=== PATIENT | female | born 1990 | race African-American/Black ===

== ENCOUNTER 2022-02-06 15:20 | Emergency (ER) | payer OTHER, SELFPAY ==
--- NOTE | ~2022-02-06 | XR_ITS ---
EXAMINATION: XR THORACIC SPINE CLINICAL INFORMATION: Injury at work COMPARISON: None TECHNIQUE: 3 views of the thoracic spine were obtained. FINDINGS: There is no fracture or bone destruction seen and the vertebral alignment is normal. There is no disc space narrowing. There is no abnormality of the paraspinal soft tissues. XR/XR thoracic spine 3V IMPRESSION: No thoracic spine abnormality appreciated.
[2022-02-06 15:35] VITALS: BP 129/78; PULSE 87; RESP 18; TEMP 36.7; O2SAT 100; BMI 26.8
--- NOTE | 2022-02-06 16:57 | ED.BACK ---
HPI - Back Pain/Injury General Chief Complaint: Back Pain/Injury Stated Complaint: Back inj at work Time Seen by Provider: 02/06/22 16:28 Source: patient Mode of arrival: ambulatory Limitations: no limitations History of Present Illness HPI Narrative: Patient presents emergency department for evaluation of midthoracic pain. She states while at work this morning she was attempting to prevent patient from falling when she fell backwards into the wall striking her mid back onto the wall. Pain is made worse with movement, forward stretching of the arms. Denies any numbness or tingling. Denies pain to the lower back or perineum. No bladder or bowel incontinence. No prior injury to back. MD elicited complaint: back pain Related Data Allergies Allergy/AdvReac Type Severity Reaction Status Date / Time No Known Allergies Allergy Unverified 02/27/20 19:00 [No Known Allergies*] Review of Systems Review of Systems: Constitutional: No fever, chills, weakness or fatigue. Cardiovascular: No chest pain, chest pressure or chest discomfort. No palpitations Respiratory: No shortness of breath, cough or sputum production. Genitourinary: No burning micturition. No urinary frequency or incontinence. Neurologic: No headache, dizziness, syncope, unilateral weakness, ataxia, numbness or tingling in the extremities. No change in bowel or bladder control. Musculoskeletal: + Back pain as noted in HPI. No joint pain or stiffness. Yes all other systems are reviewed and are negative PMFSH Past Medical History Attestation statement: The following information was validated with the patient. Source: old records reviewed Social History Social History Advance Directives: No Advance Directives Information Provided: No Physical Exam Vital Signs: Vital Signs: Last Vital Signs Temp 98.0 F 02/06/22 15:35 Pulse 87 02/06/22 15:35 Resp 18 02/06/22 15:35 BP 129/78 02/06/22 15:35 Pulse Ox 100 02/06/22 15:35 O2 Del Method 02/06/22 15:35 BMI result Body Mass Index 26.8 Vital signs have been reviewed as normal and appeared to be correct. Blood pressure normal.? Heart rate normal.? Respiration rate normal. Temperature normal.? Oxygen saturation normal. Appearance: Alert.?Oriented to person, place and time. No acute distress.?Normal affect. Eyes: Pupils equal, round and reactive to light.? ENT: Pharynx normal.?? Neck: Normal inspection.? Neck supple. No midline cervical spine tenderness, step-offs, deformities?? CVS: Heart sounds normal. Normal heart rate and rhythm.? Pulses normal; bilateral radial pulses 2+, bilateral posterior tibial/dorsalis pedis pulses 2+.? Respiratory: No respiratory distress.? Lung sounds clear to auscultation bilaterally??palpable chest wall tenderness. No crepitus. Abdomen: Soft and non-tender.? Skin: Skin warm and dry.? Normal skin color.? Normal skin turgor.?? Extremities: No lower extremity edema.? Back: + mild paraspinal muscular tenderness at thoracic region. No CVA tenderness. No midline spinal tenderness, step-off's, or deformity. Full ROM intact in bilateral lower extremities. No abrasions noted. Neuro: Moves all extremities spontaneously. Sensation to light touch intact bilaterally. No ataxia, gait normal and steady.. No focal neuro deficits. Course Course Course Narrative: Patient is a 31-year-old female with no significant past medical history who presents emergency department for evaluation of traumatic back pain after falling into a wall at work today. XR the thoracic spine reveals no acute fracture or osseous abnormalities. Pain is exacerbated with movement, seeming most consistent with muscular pain, although cannot completely exclude herniated disc. On neurological exam there are no deficits. Not consistent with spinal fracture, spinal infection.. No high risk past medical history including incontinence, fever, immunosuppression, recent surgery or lumbar puncture, coagulopathy, significant trauma, recent unintentional weight loss, pulsatile mass, history of cancer, history of TB, history of IV drug use that would warrant MRI or CT. Reviewed plan of care for discharge home, Tylenol/ibuprofen as needed for pain, ice/heat applied as tolerated throughout the day. Reviewed worsening signs and symptoms return back to the emergency department for. Outpatient follow-up with primary care provider as needed. Patient verbalized understanding, was discharged home in stable condition, ambulatory out of the emergency department with steady gait. All questions were answered. MDM - Back Pain/Injury Medical Records Attestation: I reviewed the patient's medical records. Imaging Data thoracic XR: Radiologist's impression: XR/XR thoracic spine 3V IMPRESSION: No thoracic spine abnormality appreciated. Discharge Plan Discharge Clinical Impression: Thoracic back pain Patient Disposition: Home, Self-Care Instructions: Thoracic Pain (ED) Additional Instructions: As we discussed the x-ray of your back was normal. You can take ibuprofen 200 mg, 3 tablets (600mg) every 6-8 hours as needed for pain, in addition to Tylenol 500 mg, 2 tablets (1,000mg) every 4-6 hours as needed for pain, but not to exceed 3 doses daily (3,000mg).? You may apply ice/heat a few times over the next few days to aid in pain relief. Engage in gentle stretching and exercise. Please contact your primary care provider to arrange for a follow-up as needed Return to emergency department with any new or worsening symptoms or concerns. Stand Alone Forms: Work/School Release
== END 2022-02-06 18:06 | disposition home or self-care (01) ==
PROVIDERS: Emergency Provider Internal Medicine
DX: M54.6 Pain in thoracic spine (principal); M54.50 Low back pain, unspecified
CPT/HCPCS: 72072; 99282

== ENCOUNTER 2022-12-02 07:51 | Emergency (ER) | payer MEDICAID, SELFPAY ==
[2022-12-02 07:59] VITALS: BP 116/68; BP 120/79; PULSE 72; PULSE 77; RESP 13; TEMP 37.1; O2SAT 100; BMI 25.5
--- NOTE | 2022-12-02 08:19 | ED.GENADULT ---
HPI - General Adult General Chief complaint: Headache Stated complaint: Allergic reaction, dizziness, nausea Time Seen by Provider: 12/02/22 07:54 Source: patient Mode of arrival: ambulatory Limitations: no limitations History of Present Illness HPI narrative: 32-year-old female with history of migraines recently starting sumatriptan. Patient was having severe headache earlier today and she took her 2nd dose of sumatriptan. Since then she developed some heaviness behind her neck, nausea, lightheadedness. She describes her symptoms as severe. Her symptoms are worsened by sumatriptan. There is no clear relieving symptoms. They are steadily getting better on their own. She does have a headache at this time does moderate nature. Bitemporal. Does not radiate. It is not worse by light or sound. There is associated nausea but no vomiting. She denies any fevers but she is having intermittent chills. The pain that she does have is aching and pressure in nature. Does not radiate. Related Data Previous Rx's Medication Instructions Recorded [id number]-[id number] 1 cap PO Q8H PRN pain #10 caps 12/02/22 50 mg-300 mg-40 mg capsule (Fioricet) metoclopramide HCl 10 mg tablet 10 mg PO Q6H PRN nausea and 12/02/22 (Reglan) vomiting #10 tabs Allergies Allergy/AdvReac Type Severity Reaction Status Date / Time No Known Allergies Allergy Verified 12/02/22 08:10 [No Known Allergies*] Review of Systems Review of Systems: CONSTITUTIONAL: Denies weight loss, fever + chills. HEENT: Denies changes in vision and hearing. RESPIRATORY: Denies SOB and cough. CV: Denies palpitations no CP. GI: Denies abdominal pain,+ nausea, - vomiting and diarrhea. : Denies dysuria and urinary frequency. MSK: Denies myalgia and joint pain. SKIN: Denies rash and pruritus. NEUROLOGICAL: + headache - syncope. PSYCHIATRIC: Denies recent changes in mood. Denies anxiety and depression. All other ROS are negative unless in HPI [facility] Social History Social History Advance Directives: No Advance Directives Information Provided: Yes Physical Exam ED Vital Signs: Vital Signs - 24 hr 12/02/22 07:59 Temperature 98.8 F Pulse Rate 77 Respiratory Rate 13 Blood Pressure 120/79 Pulse Oximetry 100 Oxygen Delivery Method Room Air BMI result Body Mass Index 25.5 GEN: Well developed, no acute distress, alert, oriented HEENT: Normocephalic, atraumatic, normal external ears, nose appears normal, no oropharyngeal edema or exudates Eyes: Normal to appearance Neck: Supple, no lymphadenopathy Respiratory: Talks in complete sentences, no respiratory distress, clear to auscultation bilaterally Cardiovascular: Regular rate and rhythm, no murmurs rubs or gallops Abdomen: Soft, nontender, nondistended, no guarding, no rebound Back: No CVA tenderness Extremities: No clubbing cyanosis or edema Neurologic: No focal neurologic deficits, cranial nerves 2-12 intact, strength is 5/5 bilaterally Skin: No rash Course Course Course Narrative: Patient presents with migraine headache and probably adverse effects from Triptan therapy. Patient is feeling much better at this time. Will discharge. She will stop Triptan medications. Will recommend Fioricet and Reglan as needed for pain and discomfort. Medications Administered Discontinued Medications Generic Name Dose Route Start Last Admin Trade Name Freq PRN Reason Stop Dose Admin Sodium Chloride 1,000 mls @ 999 mls/hr 12/02/22 08:15 12/02/22 09:08 Ns IV 12/02/22 09:15 999 mls/hr .Q1H1M ELYSSA Administration Ketorolac Tromethamine 15 mg 12/02/22 08:08 12/02/22 09:14 Ketorolac Tromethamine 15 Mg/Ml Vial IVPUSH 12/02/22 08:09 15 mg ONCE ONE Administration Metoclopramide HCl 10 mg 12/02/22 08:08 12/02/22 09:14 Metoclopramide Hcl 10 Mg/2 Ml Vial IVPUSH 12/02/22 08:09 10 mg ONCE ONE Administration Medical Decision Making Medical Decision Making MDM Narrative: 32-year-old female presents with side effects from sumatriptan which she recently started. Patient was having a bitemporal headache that was moderate to severe in nature. She took sumatriptan. She then developed some heaviness behind her neck, nausea, lightheadedness and intermittent chills. Her symptoms are starting to rosario. Her examination is unremarkable. Differential diagnosis includes viral syndrome, side effect from medication, migraine headache, other headache syndrome, electrolyte abnormality, hypoglycemia. Plan will be to check routine laboratory analysis, provide patient with analgesia through the IV including IV fluids, Toradol, Reglan. Will re-evaluate the patient. There is no indication for emergent imaging for headache as I doubt subdural hematoma, epidural hematoma, subarachnoid hemorrhage. Her neck was supple. She has no meningitis symptoms. Should her symptoms worsen or not progress to improvement, would consider hospitalization. Differential Diagnosis Differential Diagnoses: The differential diagnosis associated with the presentation includes Admission/Observation Consideration of admission/observation: Escalation of care including admission/observation considered Lab Data MDM Lab Attestation statement: I reviewed the patient's lab results. 12/02/22 08:18 12/02/22 08:17 Labs: Lab Results 12/02/22 12/02/22 12/02/22 Range/Units 08:17 08:18 08:33 WBC 4.0 L (4.8-10.8) X10*3/uL RBC 4.43 (4.20-5.50) X10*6/uL Hgb 11.5 L (12.0-16.0) g/dl Hct 35.4 L (37.0-47.0) % MCV 79.9 L (80.0-98.0) fL MCH 26.0 L (27.0-33.0) pg MCHC 32.5 (31.0-35.0) g/dl RDW 14.0 (11.0-16.0) % Plt Count 231 (160-400) X10*3/uL MPV 10.6 (9.4-12.3) fL Immature Gran % (Auto) 0.3 (0.0-0.4) % Neut % (Auto) 50.3 (45-73) % Lymph % (Auto) 35.3 (20-40) % [place] % (Auto) 11.0 (2-11) % Eos % (Auto) 2.8 (0-4) % Baso % (Auto) 0.3 (0-2) % Lymph # (Auto) 1.4 (1.2-4.9) X10*3/uL [place] # (Auto) 0.4 (0.1-1.2) X10*3/uL Eos # (Auto) 0.1 (0.0-0.4) X10*3/uL Baso # (Auto) 0.0 (0.0-0.2) X10*3/uL Abs Immat Gran (auto) 0.01 (0.00-0.03) X10*3/uL Absolute Neuts (auto) 2.0 (2.0-8.3) x10*3/uL Absolute Nucleated RBC 0.000 (0.0-0.012) X10*3/uL Nucleated RBC % (auto) 0.0 (0.0-0.2) /100WBC Sodium 138 (135-145) mmol/L Potassium 4.1 (3.3-5.1) mmol/L Chloride 104 (96-108) mmol/L Carbon Dioxide 27 (22-29) mmol/L Anion Gap 11 L (12-20) BUN 12 (9-16) mg/dL Creatinine 0.88 (0.5-1.4) mg/dL Estim Creat Clear Calc 87.4 Estimated GFR > 60 Random Glucose 85 (60-115) mg/dL Calcium 10.0 (8.4-10.2) mg/dL Urine Color Yellow Urine Appearance Clear Urine pH 6.5 (5.0-9.0) Ur Specific [place] 1.010 (1.005-1.025) Urine Protein Negative (Neg-Trace) mg/dL Urine Glucose (UA) Negative (Negative) mg/dL Urine Ketones Negative (Negative) mg/dL Urine Blood Negative (Negative) Urine Nitrite Negative (Negative) Ur Leukocyte Esterase Negative (Negative) Urine Test (NEGATIVE) 12/02/22 Range/Units 08:33 WBC (4.8-10.8) X10*3/uL RBC (4.20-5.50) X10*6/uL Hgb (12.0-16.0) g/dl Hct (37.0-47.0) % MCV (80.0-98.0) fL MCH (27.0-33.0) pg MCHC (31.0-35.0) g/dl RDW (11.0-16.0) % Plt Count (160-400) X10*3/uL MPV (9.4-12.3) fL Immature Gran % (Auto) (0.0-0.4) % Neut % (Auto) (45-73) % Lymph % (Auto) (20-40) % [place] % (Auto) (2-11) % Eos % (Auto) (0-4) % Baso % (Auto) (0-2) % Lymph # (Auto) (1.2-4.9) X10*3/uL [place] # (Auto) (0.1-1.2) X10*3/uL Eos # (Auto) (0.0-0.4) X10*3/uL Baso # (Auto) (0.0-0.2) X10*3/uL Abs Immat Gran (auto) (0.00-0.03) X10*3/uL Absolute Neuts (auto) (2.0-8.3) x10*3/uL Absolute Nucleated RBC (0.0-0.012) X10*3/uL Nucleated RBC % (auto) (0.0-0.2) /100WBC Sodium (135-145) mmol/L Potassium (3.3-5.1) mmol/L Chloride (96-108) mmol/L Carbon Dioxide (22-29) mmol/L Anion Gap (12-20) BUN (9-16) mg/dL Creatinine (0.5-1.4) mg/dL Estim Creat Clear Calc Estimated GFR Random Glucose (60-115) mg/dL Calcium (8.4-10.2) mg/dL Urine Color Urine Appearance Urine pH (5.0-9.0) Ur Specific [place] (1.005-1.025) Urine Protein (Neg-Trace) mg/dL Urine Glucose (UA) (Negative) mg/dL Urine Ketones (Negative) mg/dL Urine Blood (Negative) Urine Nitrite (Negative) Ur Leukocyte Esterase (Negative) Urine Test NEGATIVE (NEGATIVE) Tests considered The following testing was considered but not selected: CT scan head Prescription Management I considered prescription management with: Pain Medication Discharge Plan Discharge Clinical Impression: Headache, Drug side effects Patient Disposition: Home, Self-Care Instructions: Acute Headache (ED) Prescriptions: New metoclopramide HCl [Reglan] 10 mg tablet 10 mg PO Q6H PRN (Reason: nausea and vomiting) Qty: 10 0RF [id number]-[id number] [Fioricet] 50-300-40 mg capsule 1 cap PO Q8H PRN (Reason: pain) Qty: 10 0RF Referrals: Physician,Unknown J [Primary Care Provider] - (PMD as needed)
[2022-12-02 08:22] LABS: MANUAL DIFF FLAG NO
[2022-12-02 08:36] LABS: Basophils Percent Auto 0.3 % (0-2); Eosinophils Absolute Auto 0.1 X10*3/uL (0.0-0.4); Eosinophils Percent Auto 2.8 % (0-4); Hematocrit 35.4 % (37.0-47.0); Hemoglobin 11.5 g/dl (12.0-16.0); Imm Gran Abs Auto 0.01 X10*3/uL (0.00-0.03); Imm Gran Pct Auto 0.3 % (0.0-0.4); Lymphocytes Absolute Auto 1.4 X10*3/uL (1.2-4.9); Lymphocytes Percent Auto 35.3 % (20-40); Mean Corpuscular HGB Conc 32.5 g/dl (31.0-35.0); Mean Corpuscular Volume 79.9 fL (80.0-98.0); Mean Platelet Volume 10.6 fL (9.4-12.3); Monocytes Absolute Auto 0.4 X10*3/uL (0.1-1.2); Neutrophils Percent Auto 50.3 % (45-73); Platelet Count 231 X10*3/uL (160-400); Red Blood Count 4.43 X10*6/uL (4.20-5.50)
[2022-12-02 08:44] LABS: Appearance Urine Clear; Color Urine Yellow; Glucose Urine UA Negative (Negative); Leukocyte Esterase Urine Negative (Negative); Nitrite Urine Negative (Negative); PH 6.5 (5.0-9.0); Urine Blood Negative (Negative); Urine Ketones Negative (Negative); Urine Protein Negative (Neg-Trace)
[2022-12-02 08:46] LABS: UPreg QC Valid YES; Urine Pregnancy NEGATIVE (NEGATIVE)
[2022-12-02 09:07] LABS: Anion Gap 11 (12-20); Blood Urea Nitrogen 12 mg/dL (9-16); Carbon Dioxide 27 mmol/L (22-29); Chloride 104 mmol/L (96-108); Creatinine Clr Calc Pharmacy 87.4; Estimated Glomerular Filt Rate > 60; Glucose Random 85 mg/dL (60-115); Potassium 4.1 mmol/L (3.3-5.1); Sodium 138 mmol/L (135-145)
[2022-12-02] MEDS: 0.9 % Sodium Chloride 1,000 ML 999 ML IV (09:08)
[2022-12-02] MEDS: Ketorolac Tromethamine 15 MG/ML VIAL IVPUSH (09:14)
[2022-12-02] MEDS: Metoclopramide HCl 10 MG/2 ML VIAL IVPUSH (09:14)
--- NOTE | 2022-12-02 10:45 | PC.NURSE ---
pt cleared for discharge. discharge instructions reviewed with pt. denies pain. vss.
== END 2022-12-02 10:44 | disposition home or self-care (01) ==
PROVIDERS: Emergency Provider Emergency Medicine
DX: R51.9 Headache, unspecified (principal); R42 Dizziness and giddiness; M54.2 Cervicalgia; Z79.899 Other long term (current) drug therapy
CPT/HCPCS: 36415; 80048; 81003; 81025; 85025; 96361; 96374; 96375; 99283; 99284; J1885; J2765